=== PATIENT | male | born 1985 | race Caucasian/White ===

== ENCOUNTER 2018-05-13 04:08 | Emergency (ER) | payer MEDICAID, OTHER ==
[~2018-05-13] VITALS: Ht 177.8 cm; Wt 109.8 kg
[2018-05-13 04:10] VITALS: BP 135/79
--- NOTE | 2018-05-13 04:15 | NUR ---
33/M C/O EPIGASTRIC PAIN X 4 HOURS. PT DENIES N/V/D, FEVER/CHILLS, CONSTIPATION, OR URINARY COMPLAINTS. ABD SOFT,ROUND, -TENDERNESS, BS ACTIVE X4. DENIES PMH
--- NOTE | 2018-05-13 04:15 | NUR ---
PT TAKEN TO BED 11
[2018-05-13] MEDS ORDERED: DICYCLOMINE HCL LIQUID 20 MG, ALUMINUM HYD/MAG/SIMETHICONE 30 ML, LIDOCAINE VISCOUS 2% ... PO ONE ×3 (04:30)
--- NOTE | 2018-05-13 04:32 | NUR ---
Dr. Becerra evaluating patient at bedside.
--- NOTE | 2018-05-13 04:55 | NUR ---
Patient discharged with v/s stable. Written and verbal after care instructions given and explained. Patient alert, oriented and verbalized understanding of instructions. Ambulatory with steady gait. All questions addressed prior to discharge. ID band removed. Patient advised to follow up with PMD. Rx of PRILOSEC given. Patient educated on indication of medication including possible reaction and side effects. Opportunity to ask questions provided and answered.
[2018-05-13 05:00] VITALS: BP 117/71
== END 2018-05-13 04:55 | disposition home or self-care (01) ==
LOC: MED 04:08
DX: R10.13 Epigastric pain (principal); Z88.6 Allergy status to analgesic agent
CPT/HCPCS: 81002; 99282; 99283

== ENCOUNTER 2018-10-08 17:48 | Emergency (ER) | payer OTHER ==
[~2018-10-08] VITALS: Ht 177.8 cm; Wt 113.4 kg
[2018-10-08 17:59] VITALS: BP 153/80
--- NOTE | 2018-10-08 19:24 | NUR ---
PT TO ER BED 2
--- NOTE | 2018-10-08 19:28 | NUR ---
PT TO ED WITH C/O EPIGASTRIC PAIN X 0620 TODAY. REPORTS N/V. ABD IS SOFT NON TENDER. BOWELS SOUND ACTIVE TO ALL QUADRANTS. PT DENIES PAIN UPON PALPATION. PT PLACED INTO BED, PENDING MD SARABIA. PMH--DENIES ALLERGY--IBUPROFEN
[2018-10-08 19:59] LABS: BASOPHILS # (AUTO) 0.1 K/uL (0.00-0.22); BASOPHILS % (AUTO) 0.8 % (0.0-2.0); EOSINOPHILS # (AUTO) 0.2 K/uL (0-0.4); HEMATOCRIT 46.5 % (36-52); HEMOGLOBIN 15.7 g/dL (12.0-18.0); LYMPHOCYTES # (AUTO) 2.9 K/uL (2.0-11.5); LYMPHOCYTES % (AUTO) 28.4 % (20.5-51.1); MEAN CORPUSCULAR HEMOGLOBIN 27 pg (27-31); MEAN CORPUSCULAR HGB CONC 34 g/dL (33-37); MEAN CORPUSCULAR VOLUME 80.6 fL (80-94); MONOCYTES # (AUTO) 0.7 K/uL (0.8-1.0); MONOCYTES % (AUTO) 7.1 % (1.7-9.3); NEUTROPHILS # (AUTO) 6.2 K/uL (1.8-7.7); NEUTROPHILS % (AUTO) 61.7 % (42.2-75.2); PLATELET COUNT (AUTO) 294 K/uL (140-450); RED BLOOD CELL COUNT(AUTO) 5.76 MIL/uL (4.20-6.10); RED CELL DISTRIBUTION WIDTH 14.2 % (11.6-13.7); WHITE BLOOD COUNT (AUTO) 10.1 K/uL (4.8-10.8)
[2018-10-08 20:09] LABS: ANION GAP 12.2 (8-16); CARBON DIOXIDE 26.5 mmol/L (21-32); CREATININE 0.7 mg/dL (0.7-1.3); POTASSIUM 3.7 mmol/L (3.5-5.1)
[2018-10-08 20:15] LABS: ALBUMIN 4.1 g/dL (3.4-5.0); TOTAL BILIRUBIN 0.4 mg/dL (0.0-1.0)
--- NOTE | 2018-10-08 20:33 | NUR ---
Dr. Becerra evaluating patient at bedside.
[2018-10-08] MEDS ORDERED: DICYCLOMINE HCL LIQUID 20 MG, ALUMINUM HYD/MAG/SIMETHICONE 30 ML, LIDOCAINE VISCOUS 2% ... PO ONE ×3 (20:40)
[2018-10-08] MEDS ORDERED: DICYCLOMINE HCL LIQUID 10 MG/5 ML UDC ONE (20:51)
[2018-10-08] MEDS ORDERED: ALUMINUM HYD/MAG/SIMETHICONE 30 ML UDC ONE (20:52)
[2018-10-08] MEDS ORDERED: LIDOCAINE VISCOUS 2% 20 ML UDC ONE (20:52)
[2018-10-08 20:55] VITALS: BP 141/81
[2019-02-21] MEDS ORDERED: MIC5 PO (10:43)
== END 2018-10-08 20:50 | disposition home or self-care (01) ==
LOC: MED 17:48
DX: R10.13 Epigastric pain (principal); Z88.8 Allergy status to other drugs, medicaments and biological substances
CPT/HCPCS: 36415; 80053; 83690; 85025; 99283

== ENCOUNTER 2018-10-29 05:50 | Emergency (ER) | payer OTHER ==
[~2018-10-29] VITALS: Ht 177.8 cm; Wt 113.4 kg
[2018-10-29 05:57] VITALS: BP 141/83
--- NOTE | 2018-10-29 05:57 | NUR ---
PT TAKEN TO BED 7
--- NOTE | 2018-10-29 06:00 | NUR ---
33/M PRESENTS TO ED, C/O 05/02 SHARP CONSTANT MID CHEST PAIN, RADIATING TO EPIGASTRIC, X1.5 HRS. PT REPORTS PERSISTENT COUGH, X2 WEEKS. REPORTS EPISODE OF VOMITING X1 THIS AM. REPORTS PLEURITIC CP. DENIES FEVER OR NAUSEA AT THIS TIME. AOX4, GCS 15, SKIN NORMAL WARM AND DRY, RR EVEN AND UNLABORED. HX LEARNING DISABILITY DENIES RX OR OTC
--- NOTE | 2018-10-29 06:14 | NUR ---
Dr. Angel evaluating patient at bedside.
--- NOTE | 2018-10-29 06:14 | NUR ---
Casie christie in [facility] - 10/29/[address] at [address] Irene evaluating patient at bedside.
--- NOTE | 2018-10-29 06:24 | NUR ---
PHLEB AT BEDSIDE FOR LAB DRAWS
[2018-10-29] MEDS ORDERED: DICYCLOMINE HCL LIQUID 20 MG, ALUMINUM HYD/MAG/SIMETHICONE 30 ML, LIDOCAINE VISCOUS 2% ... PO ONE ×3 (06:25)
[2018-10-29 06:34] LABS: BASOPHILS # (AUTO) 0.1 K/uL (0.00-0.22); BASOPHILS % (AUTO) 0.7 % (0.0-2.0); EOSINOPHILS # (AUTO) 0.2 K/uL (0-0.4); EOSINOPHILS % (AUTO) 2.8 % (0.0-4.0); HEMATOCRIT 43.4 % (36-52); HEMOGLOBIN 14.7 g/dL (12.0-18.0); LYMPHOCYTES % (AUTO) 23.3 % (20.5-51.1); MEAN CORPUSCULAR HEMOGLOBIN 27 pg (27-31); MEAN CORPUSCULAR HGB CONC 34 g/dL (33-37); MEAN CORPUSCULAR VOLUME 80.3 fL (80-94); MONOCYTES # (AUTO) 0.8 K/uL (0.8-1.0); MONOCYTES % (AUTO) 9.6 % (1.7-9.3); NEUTROPHILS # (AUTO) 5.5 K/uL (1.8-7.7); NEUTROPHILS % (AUTO) 63.6 % (42.2-75.2); PLATELET COUNT (AUTO) 272 K/uL (140-450); RED CELL DISTRIBUTION WIDTH 13.6 % (11.6-13.7); WHITE BLOOD COUNT (AUTO) 8.7 K/uL (4.8-10.8)
[2018-10-29] MEDS ORDERED: ALUMINUM HYD/MAG/SIMETHICONE 30 ML UDC PO ONE (06:35)
[2018-10-29] MEDS ORDERED: LIDOCAINE VISCOUS 2% 20 ML UDC PO ONE (06:35)
[2018-10-29] MEDS ORDERED: DICYCLOMINE HCL LIQUID 10 MG/5 ML UDC PO ONE (06:35)
[2018-10-29] MEDS: ACETAMINOPHEN 325 MG TAB PO SCH ×2 (06:43→06:47)
--- NOTE | 2018-10-29 06:46 | NUR ---
PT LAYING IN BED, RR EVEN AND UNLABORED. VSS. PT REFUSED TYLENOL TABLETS PO, PT STATED "I CAN'T SWALLOW PILLS." ADMINISTERED BENTYL PO, LIDOCAINE VISCOUS SOLUTION, AND MAALOX PO, GI COCKTAIL PER DR GEORGE. PT TOLERATED WELL.
[2018-10-29 06:51] LABS: ANION GAP 13.2 (8-16); CARBON DIOXIDE 28.8 mmol/L (21-32); CREATININE 0.7 mg/dL (0.7-1.3)
[2018-10-29 06:57] LABS: ALBUMIN 3.9 g/dL (3.4-5.0); TOTAL BILIRUBIN 0.6 mg/dL (0.0-1.0)
--- NOTE | 2018-10-29 07:15 | NUR ---
Pt report given to MADDY ALMONTE. Transfer of care at this time.
--- NOTE | 2018-10-29 07:18 | NUR ---
Casie christie in [facility] - 10/29/18 at 0728 by DYLON REPORT RECIEVED FROM MADDY RAMIREZ, TRANSFER OF CARE AT THIS TIME.
--- NOTE | 2018-10-29 08:30 | NUR ---
Patient discharged with v/s stable. Written and verbal after care instructions given and explained. Patient verbalized understanding. Ambulatory with steady gait. All questions addressed prior to discharge. Advised to follow up with PMD.
[2018-10-29 08:32] VITALS: BP 129/81
[2019-02-21] MEDS ORDERED: MIC5 PO (10:43)
== END 2018-10-29 08:30 | disposition home or self-care (01) ==
LOC: MED 05:50
DX: R07.89 Other chest pain (principal); Z88.6 Allergy status to analgesic agent
CPT/HCPCS: 36415; 71045; 80053; 83690; 84484; 85025; 93005; 99284; Q0092

== ENCOUNTER 2018-12-11 04:49 | Emergency (ER) | payer OTHER ==
[~2018-12-11] VITALS: Ht 177.8 cm; Wt 113.4 kg
[2018-12-11 04:49] VITALS: BP 145/94
--- NOTE | 2018-12-11 04:54 | NUR ---
AMBULATED TO ER BED 3
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
[2018-12-11] MEDS ORDERED: ONDANSETRON 4 MG ODT PO ONE (05:05)
--- NOTE | 2018-12-11 05:05 | NUR ---
DR GALLARDO AT BEDSIDE. WILL FOLLOW UP ON ORDERS.
[2018-12-11] MEDS ORDERED: ALUMINUM HYD/MAG/SIMETHICONE 30 ML UDC PO ONE (05:15)
[2018-12-11] MEDS ORDERED: PANTOPRAZOLE 40 MG TABEC PO ONE (05:15)
[2018-12-11] MEDS ORDERED: LIDOCAINE VISCOUS 2% 20 ML UDC PO ONE (05:15)
[2018-12-11] MEDS ORDERED: DICYCLOMINE HCL LIQUID 10 MG/5 ML UDC PO ONE (05:15)
--- NOTE | 2018-12-11 05:40 | NUR ---
PATIENT STATES NO RELIEF FROM PAIN. ERMD AWARE
[2018-12-11] MEDS ORDERED: MORPHINE SULFATE 2 MG/ML SYR IVP ONE (05:45)
[2018-12-11] MEDS ORDERED: NACL 0.9% 500 ML IV ONE (05:45)
[2018-12-11 06:33] VITALS: BP 136/90
--- NOTE | 2018-12-11 06:34 | NUR ---
Patient discharged with v/s stable. Written and verbal after care instructions given and explained. Patient alert, oriented and verbalized understanding of instructions. Ambulatory with steady gait. All questions addressed prior to discharge. ID band removed. Patient advised to follow up with PMD. Rx of PROTONIX, ZOFRAN given. Patient educated on indication of medication including possible reaction and side effects. Opportunity to ask questions provided and answered.
[2019-02-21] MEDS ORDERED: MIC5 PO (10:43)
== END 2018-12-11 06:33 | disposition home or self-care (01) ==
LOC: MED 04:49
DX: K21.9 Gastro-esophageal reflux disease without esophagitis (principal); Z88.8 Allergy status to other drugs, medicaments and biological substances
CPT/HCPCS: 96374; 99284; J2270; J7030; Q0162

== ENCOUNTER 2019-04-11 15:20 | Emergency (ER) | payer OTHER ==
[~2019-04-11] VITALS: Ht 177.8 cm; Wt 113.4 kg
[~2019-04-11 15:20] MED LIST: MIC5 PO
[2019-04-11 15:22] VITALS: BP 126/68
[2019-04-11 16:13] LABS: BASOPHILS # (AUTO) 0.1 K/uL (0.00-0.22); BASOPHILS % (AUTO) 0.7 % (0.0-2.0); EOSINOPHILS # (AUTO) 0.1 K/uL (0-0.4); EOSINOPHILS % (AUTO) 1.1 % (0.0-4.0); HEMATOCRIT 48.1 % (36-52); LYMPHOCYTES # (AUTO) 1.4 K/uL (2.0-11.5); LYMPHOCYTES % (AUTO) 17.4 % (20.5-51.1); MEAN CORPUSCULAR HEMOGLOBIN 28 pg (27-31); MEAN CORPUSCULAR HGB CONC 33 g/dL (33-37); MEAN CORPUSCULAR VOLUME 82.8 fL (80-94); MONOCYTES # (AUTO) 0.6 K/uL (0.8-1.0); MONOCYTES % (AUTO) 7.7 % (1.7-9.3); NEUTROPHILS # (AUTO) 6.1 K/uL (1.8-7.7); NEUTROPHILS % (AUTO) 73.1 % (42.2-75.2); PLATELET COUNT (AUTO) 302 K/uL (140-450); RED BLOOD CELL COUNT(AUTO) 5.81 MIL/uL (4.20-6.10); RED CELL DISTRIBUTION WIDTH 13.7 % (11.6-13.7); WHITE BLOOD COUNT (AUTO) 8.3 K/uL (4.8-10.8)
[2019-04-11 16:15] LABS: APPEARANCE,URINE CLEAR (CLEAR); BILIRUBIN,URINE NEGATIVE (NEGATIVE); BLOOD, URINE TRACE-I (NEGATIVE); COLOR,URINE YELLOW (YELLOW); LEUKOCYTE ESTERASE ,URINE NEGATIVE (NEGATIVE); NITRITE, URINE NEGATIVE (NEGATIVE); UGLUCOSE 3+ (NEGATIVE)
[2019-04-11 16:33] LABS: ALBUMIN 4.1 g/dL (3.4-5.0); CARBON DIOXIDE 27.4 mmol/L (21-32); CREATININE 0.9 mg/dL (0.7-1.3); POTASSIUM 4.4 mmol/L (3.5-5.1)
[2019-04-11 17:46] VITALS: BP 125/65
== END 2019-04-11 18:45 | disposition left against medical advice (07) ==
LOC: MED 15:20
DX: R10.84 Generalized abdominal pain (principal); Z53.21 Procedure and treatment not carried out due to patient leaving prior to being seen by health care provider
CPT/HCPCS: 36415; 80053; 81003; 83690; 85025; 99281

== ENCOUNTER 2020-03-02 18:08 | Emergency (ER) | payer OTHER ==
[~2020-03-02] VITALS: Ht 177.8 cm; Wt 108.9 kg
--- NOTE | 2020-03-02 18:09 | NUR ---
Patient BIBA BLS, transferred to bed 7. RN evaluating patient at bedside.
[2020-03-02 18:11] VITALS: BP 127/80
--- NOTE | 2020-03-02 18:15 | NUR ---
34 y/o male chetan c/o bee sting to lt side of face, lt thigh, and rt hand. Pt states that he walked into a bee hive. Slight redness noted to bee sting sites. Does not appear to be in distress. RR even and unlabored. 7/10 burning pain to site. Awake and alert. VSS medhx: DM allergies: ibuprofen
--- NOTE | 2020-03-02 18:23 | NUR ---
Dr. Goss is evaluating the patient at bedside.
[2020-03-02 18:40] VITALS: BP 127/80
== END 2020-03-02 18:41 | disposition home or self-care (01) ==
LOC: MED 18:08
DX: M79.641 Pain in right hand (principal); M79.652 Pain in left thigh; H57.12 Ocular pain, left eye; R51 Headache; E11.9 Type 2 diabetes mellitus without complications; K21.9 Gastro-esophageal reflux disease without esophagitis; Z88.6 Allergy status to analgesic agent; Z79.899 Other long term (current) drug therapy; W57.XXXA Bitten or stung by nonvenomous insect and other nonvenomous arthropods, initial encounter; Y93.89 Activity, other specified; Y92.89 Other specified places as the place of occurrence of the external cause; Y99.8 Other external cause status
CPT/HCPCS: 99283

== ENCOUNTER 2023-08-18 14:04 | Emergency (ER) | payer OTHER ==
[~2023-08-18] VITALS: Ht 177.8 cm; Wt 99.8 kg
[~2023-08-18 14:04] MED LIST changes: +GLYB-200 PO; -MIC5 PO
[2023-08-18 14:06] VITALS: BP 131/90; PULSE 84; RESP 20; TEMP 97.1; O2SAT 100
[2023-08-18 14:30] VITALS: BP 131/90; PULSE 84; RESP 20; TEMP 97.1; O2SAT 100
== END 2023-08-18 15:12 | disposition home or self-care (01) ==
LOC: MED 14:04
DX: E11.649 Type 2 diabetes mellitus with hypoglycemia without coma (principal); K21.9 Gastro-esophageal reflux disease without esophagitis; Z79.4 Long term (current) use of insulin; Z79.899 Other long term (current) drug therapy; Z79.1 Long term (current) use of non-steroidal anti-inflammatories (NSAID)
CPT/HCPCS: 99283